=== PATIENT | female | born 1990 | race Caucasian/White ===

== ENCOUNTER 2018-11-09 23:13 | Emergency (ER) | payer OTHER ==
[~2018-11-09] VITALS: Ht 165.1 cm; Wt 54.4 kg
[2018-11-09 23:19] VITALS: Ht 165.1 cm; Wt 54.4 kg
[2018-11-10 00:52] VITALS: BP 122/76
== END 2018-11-10 00:52 | disposition home or self-care (01) ==
LOC: ED 23:13
DX: R06.02 Shortness of breath (principal); Z98.51 Tubal ligation status; Z98.890 Other specified postprocedural states
CPT/HCPCS: Q0092